=== PATIENT | female | born 1955 | race Hispanic/Latino ===

== ENCOUNTER 2021-11-07 11:56 | Emergency (ER) | payer MEDICARE | END 2021-11-07 15:03 | disposition home or self-care (01) | LOC: CSHERS 11:56 | DX: J12.9 Viral pneumonia, unspecified (principal); F43.9 Reaction to severe stress, unspecified; E03.9 Hypothyroidism, unspecified; E11.9 Type 2 diabetes mellitus without complications | CPT/HCPCS: 71045 ==